=== PATIENT | female | born 1950 | race Caucasian/White ===

== ENCOUNTER 2016-12-19 23:54 | Emergency (ER) | payer OTHER, MEDICARE ==
[2016-12-20 00:07] VITALS: TEMP 97.4; BMI 23.0
--- NOTE | 2016-12-20 00:14 | PDOC ---
History of Present Illness - General Chief Complaint: Headache Stated Complaint: HEADACHE Time Seen by Provider: 12/19/16 23:58 - History of Present Illness Initial Comments: 12/20/16 00:14 This 66-year-old woman with a history of mitral valve replacement and currently on warfarin, presents headache and with history of fall 36 hours prior to presentation during which she struck the back of her head. Patient was walking on her driveway prior to the fall; it is unclear why she fell, but she fell backwards striking the back of her head. No loss of consciousness. Patient states the area bled for a brief period of time and then stopped. She had no headache/nausea or other symptoms yesterday, overnight or the majority of today. This evening, approximately 5 hours prior to presentation, she began to have headache in the back of her head radiating to the frontal area. She denies nausea/vomiting, vision changes, difficulty with speaking/facial weakness /extremity weakness or difficulty with balance. Patient took acetaminophen about 4 hours prior to presentation INR was reportedly checked approximately 2 weeks ago without change in warfarin dosage[INR3.42 on 11/17/30] 12/20/16 01:24 Past History - Past Medical History Allergies/Adverse Reactions: Allergies Allergy/AdvReac Type Severity Reaction Status Date / Time Sulfa (Sulfonamide Allergy Verified 09/07/16 16:47 Antibiotics) Home Medications: Ambulatory Orders Atenolol [Tenormin -] 100 mg PO DAILY tablet 02/28/13 Simvastatin 40 mg PO DAILY tablet 02/28/13 Digoxin [Lanoxin] 0.25 mg PO DAILY 10/11/14 Docusate Sodium [Colace -] 100 mg PO TID capsule 09/11/16 Aspirin [Aspir-Low] 81 mg PO DAILY 09/14/16 Anemia: Yes Cardiac Disorders: Yes (MVR) HTN: Yes Hypercholesterolemia: Yes - Surgical History Cardiac Surgery: Yes (MVR X2) - Psycho/Social/Smoking Cessation Hx Anxiety: No Suicidal Ideation: No Smoking History: Unknown if ever smoked Hx Alcohol Use: No Drug/Substance Use Hx: No Substance Use Type: None Review of Systems - Review of Systems Able to Perform ROS?: Yes Comments:: 12 point review of systems is negative except for what is noted in the history of present illness *Physical Exam - Vital Signs Last Vital Signs Temp Pulse Resp BP Pulse Ox 97.4 F L 87 16 160/85 99 12/20/16 00:04 12/20/16 00:04 12/20/16 00:04 12/20/16 00:04 12/20/16 00:04 - Physical Exam Comments: GENERAL:Adult female, alert and oriented X3 HEAD:2cmX 2cm nonbleeding abrasion midoccipital area No other abrasions/lacerations/contusions No Johns's sign EYES: PERRLA, EOMI, sclera anicteric, conjunctiva clear. ENT: Ears normal, nares patent, oropharynx clear without exudates. Dry mucous membranes. NECK: Normal range of motion, supple,nontender without lymphadenopathy, JVD, or masses. LUNGS: Breath sounds equal, clear to auscultation bilaterally. No wheezes, and no crackles. HEART:Regular rate and rhythm, 3/6 systolic murmur over precordium ABDOMEN:.normal bowel sounds No guarding,tenderness or rebound.No masses No distention. EXTREMITIES: Normal range of motion, no edema. No clubbing or cyanosis. No erythema, or tenderness. NEUROLOGICAL: Pupils 2mm/equal, Cranial nerves II through XII grossly intact. Normal speech. Moving all 4 extremities equally; No focal neurological deficits. MUSCULOSKELETAL: Back non-tender to palpation, no CVA tenderness SKIN: Warm, Dry, normal turgor, no rashes or lesions noted. Medical Decision Making - Medical Decision Making 12/20/16 01:[address] reveals acute subdural bleed of the left fronto -temporal area. CT shows some effacement of the left ventricle with midline shift. Transfer center at [facility] called. Dr. Grigsby of the neurosurgical service contacted and case discussed with him. Patient will receive Keppra 1 g IV as well as 10 mg of vitamin K IV. Patient accepted for transfer Results and plan discussed with patient and her and they agree to plan 12/20/16 01:34 ALS critical care team here for transfer Patient has had deterioration of mental status in the last 10 min: She responds to commands but is no longer verbal 12/20/16 01:57 Patient transferred by ground ambulance to [facility]/Adult ER *DC/Admit/Observation/Transfer Diagnosis at time of Disposition: Acute subdural hematoma - Discharge Dispostion Disposition: TRANSFER ACUTE CARE/OTHER HOSP Condition at time of disposition: Guarded - Referrals Referrals: STAFF,NOT ON [Non Staff, Medical] -
[2016-12-20] MEDS ORDERED: levETIRAcetam 500 MG/5 ML INJECTION VIAL IVPB ONE (01:18)
[2016-12-20] MEDS ORDERED: PHYTONADIONE 10 MG/1 ML AMP IVPB ONE (01:23)
[2016-12-20 01:41] VITALS: BP 174/76; PULSE 85
== END 2016-12-20 01:56 | disposition short-term general hospital (02) ==
LOC: FER 23:54 → SUPCPDRO 23:54 → FER 12-20 01:56
PROC: 3E033GC Introduction of Other Therapeutic Substance into Peripheral Vein, Percutaneous Approach (ICD-10-PCS; principal; 2016-12-19)
DX: S06.5X0A Traumatic subdural hemorrhage without loss of consciousness, initial encounter (principal); W01.198A Fall on same level from slipping, tripping and stumbling with subsequent striking against other object, initial encounter; Y93.01 Activity, walking, marching and hiking; Y92.89 Other specified places as the place of occurrence of the external cause; Z95.2 Presence of prosthetic heart valve; Z79.01 Long term (current) use of anticoagulants; I10 Essential (primary) hypertension; E78.00 Pure hypercholesterolemia, unspecified
CPT/HCPCS: 70450-TC; 72125-TC; 99282-25